=== PATIENT | male | born 1950 | race Two or more races ===

== ENCOUNTER 2022-09-20 07:20 | Emergency (ER) | payer OTHER ==
[~2022-09-20] VITALS: Ht 172.7 cm; Wt 74.8 kg
[~2022-09-20 07:20] MED LIST: COZAAR25 MG; SIMVASTATIN20 MG
[2022-09-20] MEDS ORDERED: ZANAFLEX4 MG PO (08:25)
[2022-09-20] MEDS ORDERED: MEDROLPACK PO (08:25)
[2022-09-20] MEDS ORDERED: NAPR500T14 PO (08:25)
== END 2022-09-20 08:37 | disposition home or self-care (01) ==
LOC: ER 07:20
DX: M54.50 Low back pain, unspecified (principal); M62.838 Other muscle spasm